=== PATIENT | female | born 1985 | race Caucasian/White ===

== ENCOUNTER 2018-02-28 10:27 | Emergency (ER) | payer OTHER ==
[~2018-02-28 10:27] MED LIST: BACTRIM DS TAB1 EACH PO; CLOZAPINE25 MG PO; CLOZARIL25 MG PO; ESCITALOPRAM10 MG PO; IBUPROFEN600 M1 PO; KEFLEX500 M1 PO; LEXAPRO20 M1 PO
[2018-02-28 10:37] VITALS: BP 175/85
== END 2018-02-28 11:32 | disposition admitted as inpatient to this hospital (09) ==
LOC: ERH 10:27
DX: J02.9 Acute pharyngitis, unspecified (principal); R09.89 Other specified symptoms and signs involving the circulatory and respiratory systems